=== PATIENT | female | born 1995 | race African-American/Black ===

== ENCOUNTER 2016-05-26 10:12 | Emergency (ER) | payer BC, OTHER ==
[~2016-05-26] VITALS: Ht 149.8 cm; Wt 50.8 kg
--- NOTE | ~2016-05-26 | EKG ---
[place], [place] ELECTROCARDIOGRAM REPORT NAME: ANNAMARIE MOREIRA UNIT #: [id number] ROOM: DOCTOR: GILBERTO YANES MD BIRTHDATE: [birth year] DOS: 05/26/2016 TIME: 19:33:02. RATE AND RHYTHM: Normal sinus rhythm at 78 beats per minute. VA interval 141 milliseconds. QRS duration 59 milliseconds, corrected QT interval 440 milliseconds, QRS axis 67. IMPRESSION: Normal EKG. GILBERTO YANES MD CM:EKGRPT:ELECTROCARDIOGRAM REPORT 1211 1330 GILBERTO YANES MD
[~2016-05-26 10:12] MED LIST: ABILIFY10 MG PO; AMOXICILLIN500 M2 PO; AUGMENTIN 875875 MG PO; BIRTH CONTROL1 EAC1; CIPROFLOXACIN500 MG PO; DEPAKOTE DR500 MG PO; DOXYCYCLINE HY100 M3 PO; FLAGYL500 MG PO; IRON90 MG PO; LEVAQUIN750 M1 PO; MELATONIN5 M1 SL; MOTRIN400 MG PO; MOTRIN800 MG PO; NKHM; PLAN B ONE-STE1.5 MG PO; RISPERDAL CON12.5 MG IM; RISPERDAL0.25 MG; TYLENOL325 M1 PO; ZOFRAN4 MG PO; ZYPREXA10 M1 PO
[2016-05-26 11:03] LABS: HEMATOCRIT 40.3 % (37.0-47.0); HEMOGLOBIN 12.5 g/dl (12.0-16.0); MEAN CELL VOLUME 80.3 fl (81.0-99.0); MEAN CORPUSCULAR HGB 24.9 pg (27.0-31.0); PLATELET COUNT AUTOMATED 350 10*3/uL (130-400); RED BLOOD COUNT 5.02 10*6/uL (4.10-5.10); RED CELL DISTRI WIDTH 13.7 % (0-14.5); WHITE BLOOD COUNT 7.5 10*3/uL (4.8-10.8)
[2016-05-26 11:14] LABS: ATYPICAL LYMPHS 1 % (0-0); BASOPHIL # 0.1 10*3/uL (0-0.1); BASOPHILS 1 % (0-1); BUN 18 mg/dl (7-24); CARBON DIOXIDE 26 mmol/L (21-32); CHLORIDE 108 mmol/L (98-107); EOSINOPHIL # 0.2 10*3/uL (0-0.4); EOSINOPHILS 2 % (1-4); EST GLOM FILT AFRICAN AMERICAN > 60 ml/min; GLUCOSE 92 mg/dL (65-99); LYMPHOCYTE # 2.5 10*3/uL (1.3-4.4); MONOCYTE # 0.2 10*3/uL (0.1-1.0); NEUTROPHIL # 4.6 10*3/uL (2.3-7.9); NEUTROPHILS 61 % (47-73); PLATELET SUFFICIENCY NORMAL (NORMAL); POTASSIUM 3.9 mmol/L (3.5-5.1); SODIUM 141 mmol/L (136-145); TOTAL CELLS COUNTED 100 #CELLS
[2016-05-26 13:55] LABS: BILIRUBIN NEGATIVE (NEGATIVE); BLOOD NEGATIVE (NEGATIVE); CLARITY CLOUDY (CLEAR); COLOR YELLOW (YELLOW); GLUCOSE NEGATIVE (NEGATIVE); KETONE 1+ (NEGATIVE); LEUKO ESTERASE NEGATIVE (NEGATIVE); NITRITE NEGATIVE (NEGATIVE); PH 5.5 (5.0-9.0); PROTEIN NEGATIVE (NEGATIVE); SPECIFIC GRAVITY >= 1.030 (1.005-1.030); UROBILINOGEN 0.2 E.U./dl (0.2-1.0)
[2016-05-26 14:11] LABS: URINE AMPHETAMINES < 1000 (1000ng/ml); URINE BARBITURATES < 200 (200ng/ml); URINE COCAINE < 300 (300ng/ml)
[2016-05-26 14:13] LABS: BACTERIA 3+; EPITHELIAL CELLS 25-30; URINE REFLEX COMMENT YES (NO); WBC 0-2 wbc/hpf (0-5)
== END 2016-05-27 09:24 | disposition short-term general hospital (02) ==
LOC: ED 10:12
PROVIDERS: Emergency Medicine
DX: F23 Brief psychotic disorder (principal); F17.200 Nicotine dependence, unspecified, uncomplicated; F31.9 Bipolar disorder, unspecified; Z88.6 Allergy status to analgesic agent; Z88.8 Allergy status to other drugs, medicaments and biological substances

== ENCOUNTER 2016-11-22 20:55 | Emergency (ER) | payer SELFPAY ==
[~2016-11-22] VITALS: Ht 147.3 cm; Wt 55.8 kg
[2016-11-22] MEDS ORDERED: CEPHALEXIN500 M1 PO (22:06)
== END 2016-11-22 22:10 | disposition home or self-care (01) ==
LOC: ED 20:55
DX: S91.332A Puncture wound without foreign body, left foot, initial encounter (principal); F12.10 Cannabis abuse, uncomplicated; F17.200 Nicotine dependence, unspecified, uncomplicated; Z88.6 Allergy status to analgesic agent; Z88.8 Allergy status to other drugs, medicaments and biological substances; W45.0XXA Nail entering through skin, initial encounter; Y93.89 Activity, other specified; Y92.009 Unspecified place in unspecified non-institutional (private) residence as the place of occurrence of the external cause; Y99.9 Unspecified external cause status

== ENCOUNTER 2016-11-28 21:25 | Emergency (ER) | payer SELFPAY ==
[~2016-11-28] VITALS: Ht 147.3 cm; Wt 55.8 kg
[~2016-11-28 21:25] MED LIST changes: +CEPHALEXIN500 M1 PO
[2016-11-28 22:07] LABS: BASO % 0.4 % (0.0-1.0); EOS # 0.2 10*3/uL (0.0-0.4); EOS % 2.6 % (1.0-4.0); HEMATOCRIT 38.1 % (37.0-47.0); HEMOGLOBIN 12.6 g/dl (12.0-16.0); LYMPH # 1.8 10*3/uL (1.3-4.4); LYMPH % 23.9 % (27.0-41.0); MEAN CELL VOLUME 78.7 fl (81.0-99.0); MEAN CORPUSCULAR HGB CONC 33.1 g/dl (33.0-37.0); MEAN PLATELET VOLUME 10.1 fl (9.6-12.3); MONO # 0.5 10*3/uL (0.1-1.0); MONO % 6.7 % (3.0-9.0); NEUT # 4.9 10*3/uL (2.3-7.9); NEUT % 66.1 % (47.0-73.0); PLATELET COUNT AUTOMATED 260 10*3/uL (130-400); RED BLOOD COUNT 4.84 10*6/uL (4.10-5.10); RED CELL DISTRI WIDTH 13.7 % (0-14.5); WHITE BLOOD COUNT 7.4 10*3/uL (4.8-10.8)
[2016-11-28 22:24] LABS: ALBUMIN 4.1 gm/dl (3.1-4.5); ALKALINE PHOSPHATASE 57 U/L (45-117); BILIRUBIN, TOTAL 0.6 mg/dl (0.2-1.0); BUN 10 mg/dl (7-24); CARBON DIOXIDE 25 mmol/L (21-32); CHLORIDE 103 mmol/L (98-107); EST GLOM FILT AFRICAN AMERICAN > 60 ml/min; GLUCOSE 84 mg/dL (65-99); POTASSIUM 3.7 mmol/L (3.5-5.1); SGOT/AST 21 IU/L (3-35); SGPT/ALT 24 U/L (12-78); SODIUM 140 mmol/L (136-145); TOTAL PROTEIN 7.9 gm/dL (6.4-8.2)
[2016-11-28 22:25] LABS: C-REACTIVE PROTEIN < 0.29 MG/DL (0-0.3)
[2016-11-28 22:26] LABS: B-hCG (QUALITATIVE) NEGATIVE (NEGATIVE)
[2016-11-28 22:45] LABS: BILIRUBIN NEGATIVE (NEGATIVE); BLOOD 1+ (NEGATIVE); CLARITY SL CLOUDY (CLEAR); COLOR YELLOW (YELLOW); GLUCOSE NEGATIVE (NEGATIVE); KETONE NEGATIVE (NEGATIVE); LEUKO ESTERASE 3+ (NEGATIVE); NITRITE NEGATIVE (NEGATIVE); PROTEIN NEGATIVE (NEGATIVE); UROBILINOGEN 0.2 E.U./dl (0.2-1.0)
[2016-11-28 23:01] LABS: BACTERIA 1+; EPITHELIAL CELLS 31-40; URINE REFLEX COMMENT YES (NO)
[2016-11-28 23:02] LABS: RBC 31-40 rbc/hpf (0-2)
[2016-11-28] MEDS ORDERED: BACTRIM DS 8001 TA1 PO (23:26)
[2016-11-28] MEDS ORDERED: PYRIDIUM200 M1 PO (23:26)
== END 2016-11-28 23:34 | disposition home or self-care (01) ==
LOC: ED 21:25
PROVIDERS: Physician Assistant
DX: N30.00 Acute cystitis without hematuria (principal); F12.10 Cannabis abuse, uncomplicated; F17.200 Nicotine dependence, unspecified, uncomplicated; Z88.6 Allergy status to analgesic agent; Z88.8 Allergy status to other drugs, medicaments and biological substances; Z79.899 Other long term (current) drug therapy

== ENCOUNTER 2016-12-24 18:15 | Emergency (ER) | payer SELFPAY ==
[~2016-12-24] VITALS: Wt 54.4 kg
[~2016-12-24 18:15] MED LIST changes: +BACTRIM DS 8001 TA1 PO; +PYRIDIUM200 M1 PO
== END 2016-12-24 21:15 | disposition home or self-care (01) ==
LOC: ED 18:15
DX: Z00.00 Encounter for general adult medical examination without abnormal findings (principal); Z32.02 Encounter for pregnancy test, result negative; F17.200 Nicotine dependence, unspecified, uncomplicated; Z88.6 Allergy status to analgesic agent; Z88.8 Allergy status to other drugs, medicaments and biological substances

== ENCOUNTER 2017-01-11 04:05 | Emergency (ER) | payer BC, OTHER ==
[~2017-01-11] VITALS: Ht 147.3 cm; Wt 55.3 kg
== END 2017-01-11 05:29 | disposition home or self-care (01) ==
LOC: ED 04:05
DX: S61.307A Unspecified open wound of left little finger with damage to nail, initial encounter (principal); Z88.6 Allergy status to analgesic agent; Z88.4 Allergy status to anesthetic agent; Z88.8 Allergy status to other drugs, medicaments and biological substances; F17.200 Nicotine dependence, unspecified, uncomplicated; Y04.0XXA Assault by unarmed brawl or fight, initial encounter; Y93.89 Activity, other specified; Y92.89 Other specified places as the place of occurrence of the external cause; Y99.8 Other external cause status

== ENCOUNTER 2017-04-18 13:18 | Emergency (ER) | payer BC, OTHER ==
[~2017-04-18] VITALS: Ht 144.7 cm; Wt 59.0 kg
[2017-04-18 13:51] LABS: BILIRUBIN NEGATIVE (NEGATIVE); BLOOD TRACE-INTACT (NEGATIVE); CLARITY SL CLOUDY (CLEAR); COLOR YELLOW (YELLOW); GLUCOSE NEGATIVE (NEGATIVE); KETONE NEGATIVE (NEGATIVE); LEUKO ESTERASE NEGATIVE (NEGATIVE); NITRITE NEGATIVE (NEGATIVE); PH 5.5 (5.0-9.0); SPECIFIC GRAVITY 1.025 (1.005-1.030); UROBILINOGEN 0.2 E.U./dl (0.2-1.0)
[2017-04-18 13:59] LABS: BASO % 0.4 % (0.0-1.0); EOS # 0.3 10*3/uL (0.0-0.4); HEMATOCRIT 38.4 % (37.0-47.0); HEMOGLOBIN 12.7 g/dl (12.0-16.0); LYMPH # 0.7 10*3/uL (1.3-4.4); LYMPH % 7.2 % (27.0-41.0); MEAN CELL VOLUME 78.4 fl (81.0-99.0); MEAN CORPUSCULAR HGB 25.9 pg (27.0-31.0); MEAN CORPUSCULAR HGB CONC 33.1 g/dl (33.0-37.0); MEAN PLATELET VOLUME 9.3 fl (9.6-12.3); MONO # 0.6 10*3/uL (0.1-1.0); MONO % 5.6 % (3.0-9.0); NEUT # 8.5 10*3/uL (2.3-7.9); NEUT % 83.4 % (47.0-73.0); PLATELET COUNT AUTOMATED 244 10*3/uL (130-400); RED CELL DISTRI WIDTH 13.9 % (0-14.5); WHITE BLOOD COUNT 10.2 10*3/uL (4.8-10.8)
[2017-04-18 14:02] LABS: BACTERIA 1+; RBC 0-2 rbc/hpf (0-2); WBC 0-2 wbc/hpf (0-5)
[2017-04-18 14:04] LABS: URINE AMPHETAMINES < 1000 (1000ng/ml); URINE BARBITURATES < 200 (200ng/ml); URINE BENZODIAZEPINES < 200 (200ng/ml); URINE CANNABINOIDS (THC) > 50 (50ng/ml); URINE COCAINE > 300 (300ng/ml); URINE METHADONE < 300 (300ng/ml); URINE OPIATES < 300 (300ng/ml)
[2017-04-18 14:05] LABS: URINE PHENCYCLIDINE < 25 (25ng/ml)
[2017-04-18 14:10] LABS: ALKALINE PHOSPHATASE 73 U/L (45-117); BUN 10 mg/dl (7-24); CHLORIDE 102 mmol/L (98-107); CREATININE 0.98 mg/dL (0.55-1.02); ETHYL ALCOHOL < 3.0 mg/dl (<3); POTASSIUM 3.8 mmol/L (3.5-5.1); SGOT/AST 20 IU/L (3-35); SGPT/ALT 25 U/L (12-78); SODIUM 140 mmol/L (136-145)
== END 2017-04-18 15:05 | disposition home or self-care (01) ==
LOC: ED 13:18
PROVIDERS: Emergency Medicine
DX: O26.891 Other specified pregnancy related conditions, first trimester (principal); R51 Headache; O99.341 Other mental disorders complicating pregnancy, first trimester; F22 Delusional disorders; O99.321 Drug use complicating pregnancy, first trimester; F19.20 Other psychoactive substance dependence, uncomplicated; F12.10 Cannabis abuse, uncomplicated; O99.331 Smoking (tobacco) complicating pregnancy, first trimester; F17.200 Nicotine dependence, unspecified, uncomplicated; Z3A.01 Less than 8 weeks gestation of pregnancy; Z88.6 Allergy status to analgesic agent; Z88.8 Allergy status to other drugs, medicaments and biological substances

== ENCOUNTER 2017-04-20 16:50 | Emergency (ER) | payer BC, OTHER ==
[~2017-04-20] VITALS: Ht 144.7 cm; Wt 59.0 kg
[2017-04-20 17:49] LABS: BILIRUBIN NEGATIVE (NEGATIVE); BLOOD NEGATIVE (NEGATIVE); CLARITY SL CLOUDY (CLEAR); COLOR YELLOW (YELLOW); GLUCOSE NEGATIVE (NEGATIVE); KETONE NEGATIVE (NEGATIVE); LEUKO ESTERASE NEGATIVE (NEGATIVE); NITRITE NEGATIVE (NEGATIVE); UROBILINOGEN 0.2 E.U./dl (0.2-1.0)
[2017-04-20 17:56] LABS: BACTERIA 1+; EPITHELIAL CELLS 31-40
[2017-04-20 17:57] LABS: WBC 0-2 wbc/hpf (0-5)
[2017-04-20] MEDS ORDERED: REGLAN5 MG PO (18:39)
== END 2017-04-20 18:46 | disposition home or self-care (01) ==
LOC: ED 16:50
PROVIDERS: Nurse Practitioner Family
DX: O26.891 Other specified pregnancy related conditions, first trimester (principal); O21.9 Vomiting of pregnancy, unspecified; O99.331 Smoking (tobacco) complicating pregnancy, first trimester; R11.0 Nausea; F17.200 Nicotine dependence, unspecified, uncomplicated; Z88.6 Allergy status to analgesic agent; Z88.8 Allergy status to other drugs, medicaments and biological substances

== ENCOUNTER 2017-04-22 06:14 | Emergency (ER) | payer BC, OTHER ==
[~2017-04-22] VITALS: Ht 157.4 cm; Wt 59.0 kg
[~2017-04-22 06:14] MED LIST changes: +REGLAN5 MG PO
[2017-04-22 06:44] LABS: BILIRUBIN NEGATIVE (NEGATIVE); BLOOD NEGATIVE (NEGATIVE); CLARITY CLEAR (CLEAR); COLOR YELLOW (YELLOW); GLUCOSE NEGATIVE (NEGATIVE); KETONE NEGATIVE (NEGATIVE); LEUKO ESTERASE NEGATIVE (NEGATIVE); NITRITE NEGATIVE (NEGATIVE); SPECIFIC GRAVITY <= 1.005 (1.005-1.030); UROBILINOGEN 0.2 E.U./dl (0.2-1.0)
[2017-04-22 06:46] LABS: BASO % 0.4 % (0.0-1.0); EOS # 0.2 10*3/uL (0.0-0.4); EOS % 2.6 % (1.0-4.0); HEMATOCRIT 37.4 % (37.0-47.0); LYMPH # 1.4 10*3/uL (1.3-4.4); LYMPH % 17.6 % (27.0-41.0); MEAN CELL VOLUME 77.3 fl (81.0-99.0); MEAN CORPUSCULAR HGB 24.8 pg (27.0-31.0); MEAN CORPUSCULAR HGB CONC 32.1 g/dl (33.0-37.0); MEAN PLATELET VOLUME 9.5 fl (9.6-12.3); MONO # 0.8 10*3/uL (0.1-1.0); MONO % 9.7 % (3.0-9.0); NEUT # 5.4 10*3/uL (2.3-7.9); NEUT % 69.2 % (47.0-73.0); PLATELET COUNT AUTOMATED 271 10*3/uL (130-400); RED BLOOD COUNT 4.84 10*6/uL (4.10-5.10); RED CELL DISTRI WIDTH 13.8 % (0-14.5); WHITE BLOOD COUNT 7.7 10*3/uL (4.8-10.8)
[2017-04-22 07:01] LABS: WBC 0-2 wbc/hpf (0-5)
[2017-04-22 07:03] LABS: ALBUMIN 4.1 gm/dl (3.1-4.5); ALKALINE PHOSPHATASE 53 U/L (45-117); BUN 10 mg/dl (7-24); CHLORIDE 105 mmol/L (98-107); CREATININE 0.79 mg/dL (0.55-1.02); POTASSIUM 3.6 mmol/L (3.5-5.1); SGOT/AST 22 IU/L (3-35); SGPT/ALT 29 U/L (12-78); SODIUM 137 mmol/L (136-145); TOTAL PROTEIN 7.7 gm/dL (6.4-8.2)
[2017-04-22 07:47] LABS: URINE AMPHETAMINES < 1000 (1000ng/ml); URINE BARBITURATES < 200 (200ng/ml); URINE BENZODIAZEPINES < 200 (200ng/ml); URINE CANNABINOIDS (THC) < 50 (50ng/ml); URINE COCAINE < 300 (300ng/ml); URINE METHADONE < 300 (300ng/ml); URINE OPIATES < 300 (300ng/ml)
[2017-04-22 07:49] LABS: URINE PHENCYCLIDINE < 25 (25ng/ml)
[2017-04-23 08:11] LABS: HIV 1+2 AB + HIV1 P24 AG Non Reactive (Non Reactive)
[2017-04-23 10:09] LABS: HEPATITIS B SURFACE AG Negative (Negative); HEPATITIS C AB 0.2 (0.0-0.9)
== END 2017-04-22 16:20 | disposition home health service (06) ==
LOC: ED 06:14
PROVIDERS: Internal Medicine; Student in an Organized Health Care Education/Training Program
DX: O99.341 Other mental disorders complicating pregnancy, first trimester (principal); F23 Brief psychotic disorder; F41.9 Anxiety disorder, unspecified; Z3A.01 Less than 8 weeks gestation of pregnancy; Z88.6 Allergy status to analgesic agent; Z88.8 Allergy status to other drugs, medicaments and biological substances

== ENCOUNTER 2017-06-01 16:59 | Emergency (ER) | payer OTHER ==
[~2017-06-01] VITALS: Ht 149.8 cm; Wt 64.4 kg
[2017-06-01] MEDS ORDERED: HALDOL5 MG PO (17:21)
[2017-06-01 17:44] LABS: BASO % 0.3 % (0.0-1.0); EOS # 0.2 10*3/uL (0.0-0.4); EOS % 2.3 % (1.0-4.0); HEMATOCRIT 35.2 % (37.0-47.0); HEMOGLOBIN 11.5 g/dl (12.0-16.0); LYMPH # 1.4 10*3/uL (1.3-4.4); LYMPH % 16.4 % (27.0-41.0); MEAN CELL VOLUME 76.9 fl (81.0-99.0); MEAN CORPUSCULAR HGB 25.1 pg (27.0-31.0); MEAN CORPUSCULAR HGB CONC 32.7 g/dl (33.0-37.0); MEAN PLATELET VOLUME 8.8 fl (9.6-12.3); MONO % 10.9 % (3.0-9.0); NEUT % 69.2 % (47.0-73.0); PLATELET COUNT AUTOMATED 237 10*3/uL (130-400); RED BLOOD COUNT 4.58 10*6/uL (4.10-5.10); RED CELL DISTRI WIDTH 14.2 % (0-14.5); WHITE BLOOD COUNT 8.7 10*3/uL (4.8-10.8)
[2017-06-01 18:00] LABS: ALBUMIN 3.1 gm/dl (3.1-4.5); ALKALINE PHOSPHATASE 45 U/L (45-117); BUN 11 mg/dl (7-24); CHLORIDE 103 mmol/L (98-107); CREATININE 0.77 mg/dL (0.55-1.02); LIPASE 93 U/L (73-393); POTASSIUM 4.1 mmol/L (3.5-5.1); SGOT/AST 15 IU/L (3-35); SGPT/ALT 17 U/L (12-78); SODIUM 138 mmol/L (136-145); TOTAL PROTEIN 7.2 gm/dL (6.4-8.2)
[2017-06-01 18:02] LABS: TROPONIN I < 0.015 ng/ml (<0.045)
[2017-06-01 18:50] LABS: BILIRUBIN NEGATIVE (NEGATIVE); BLOOD NEGATIVE (NEGATIVE); CLARITY CLEAR (CLEAR); COLOR YELLOW (YELLOW); GLUCOSE NEGATIVE (NEGATIVE); KETONE NEGATIVE (NEGATIVE); LEUKO ESTERASE NEGATIVE (NEGATIVE); NITRITE NEGATIVE (NEGATIVE); UROBILINOGEN 0.2 E.U./dl (0.2-1.0)
[2017-06-01 18:57] LABS: BACTERIA 4+
[2017-06-01 18:58] LABS: EPITHELIAL CELLS 21-30; RBC 0-2 rbc/hpf (0-2); WBC 0-2 wbc/hpf (0-5)
== END 2017-06-01 18:59 | disposition home or self-care (01) ==
LOC: ED 16:59
PROVIDERS: Nurse Practitioner Family
DX: O26.891 Other specified pregnancy related conditions, first trimester (principal); R07.9 Chest pain, unspecified; O99.321 Drug use complicating pregnancy, first trimester; F12.10 Cannabis abuse, uncomplicated; O99.331 Smoking (tobacco) complicating pregnancy, first trimester; F17.200 Nicotine dependence, unspecified, uncomplicated; Z79.899 Other long term (current) drug therapy; Z88.6 Allergy status to analgesic agent; Z88.8 Allergy status to other drugs, medicaments and biological substances; Z88.5 Allergy status to narcotic agent; Z3A.12 12 weeks gestation of pregnancy

== ENCOUNTER → 2017-07-27 | Outpatient (CLI) | payer BC, OTHER ==
[~2017-07-27] MED LIST changes: +HALDOL5 MG PO
== END | disposition home or self-care (01) ==
LOC: US 13:00
DX: Z34.81 Encounter for supervision of other normal pregnancy, first trimester (principal); Z3A.18 18 weeks gestation of pregnancy

== ENCOUNTER 2017-10-07 21:52 | Emergency (ER) | payer BC, OTHER ==
[~2017-10-07] VITALS: Ht 147.3 cm; Wt 743.0 kg
[2017-10-07 22:41] LABS: BASO % 0.4 % (0.0-1.0); EOS # 0.2 10*3/uL (0.0-0.4); EOS % 2.5 % (1.0-4.0); HEMATOCRIT 34.1 % (37.0-47.0); HEMOGLOBIN 10.9 g/dl (12.0-16.0); LYMPH # 1.5 10*3/uL (1.3-4.4); LYMPH % 20.9 % (27.0-41.0); MEAN CELL VOLUME 80.2 fl (81.0-99.0); MEAN CORPUSCULAR HGB 25.6 pg (27.0-31.0); MEAN PLATELET VOLUME 9.4 fl (9.6-12.3); MONO # 0.9 10*3/uL (0.1-1.0); NEUT # 4.5 10*3/uL (2.3-7.9); PLATELET COUNT AUTOMATED 202 10*3/uL (130-400); RED BLOOD COUNT 4.25 10*6/uL (4.10-5.10); WHITE BLOOD COUNT 7.2 10*3/uL (4.8-10.8)
[2017-10-07 22:53] LABS: BILIRUBIN NEGATIVE (NEGATIVE); BLOOD NEGATIVE (NEGATIVE); CLARITY CLEAR (CLEAR); COLOR YELLOW (YELLOW); GLUCOSE NEGATIVE (NEGATIVE); KETONE NEGATIVE (NEGATIVE); LEUKO ESTERASE NEGATIVE (NEGATIVE); NITRITE NEGATIVE (NEGATIVE); UROBILINOGEN 0.2 E.U./dl (0.2-1.0)
[2017-10-07 23:00] LABS: ALKALINE PHOSPHATASE 80 U/L (45-117); BUN 7 mg/dl (7-24); CHLORIDE 106 mmol/L (98-107); CREATININE 0.57 mg/dL (0.55-1.02); POTASSIUM 3.5 mmol/L (3.5-5.1); SGOT/AST 22 IU/L (3-35); SGPT/ALT 21 U/L (12-78); SODIUM 139 mmol/L (136-145); TOTAL PROTEIN 6.4 gm/dL (6.4-8.2)
[2017-10-07 23:07] LABS: BACTERIA 1+; EPITHELIAL CELLS 25-30
[2017-10-07] MEDS ORDERED: MACROBID100 M1 PO (23:15)
== END 2017-10-07 23:35 | disposition home or self-care (01) ==
LOC: ED 21:52
PROVIDERS: Student in an Organized Health Care Education/Training Program
DX: O23.43 Unspecified infection of urinary tract in pregnancy, third trimester (principal); R82.71 Bacteriuria; F31.9 Bipolar disorder, unspecified; Z79.82 Long term (current) use of aspirin; Z79.899 Other long term (current) drug therapy; Z3A.29 29 weeks gestation of pregnancy

== ENCOUNTER 2017-10-20 22:59 | Emergency (ER) | payer BC, OTHER ==
[~2017-10-20] VITALS: Ht 147.3 cm; Wt 79.4 kg
[~2017-10-20 22:59] MED LIST changes: +MACROBID100 M1 PO
== END 2017-10-21 00:04 | disposition left against medical advice (07) ==
LOC: ED 22:59
DX: Z34.83 Encounter for supervision of other normal pregnancy, third trimester (principal); Z3A.28 28 weeks gestation of pregnancy; Z88.6 Allergy status to analgesic agent; Z88.8 Allergy status to other drugs, medicaments and biological substances

== ENCOUNTER → 2020-09-28 | Outpatient (CLI) | payer OTHER ==
[~2020-09-28] MED LIST changes: +ALA-CORT28.4 GM T; +PRENATAL 19 TA1 EAC1 PO
== END | disposition home or self-care (01) ==
LOC: US 13:00
PROVIDERS: ATTEND Obstetrics & Gynecology
DX: O32.1XX0 Maternal care for breech presentation, not applicable or unspecified (principal); O46.90 Antepartum hemorrhage, unspecified, unspecified trimester; Z3A.21 21 weeks gestation of pregnancy

== ENCOUNTER → 2020-10-17 | Outpatient (CLI) | payer OTHER | END | disposition home or self-care (01) | LOC: US 10:30 | PROVIDERS: ATTEND Nurse Practitioner Women's Health | DX: Z34.82 Encounter for supervision of other normal pregnancy, second trimester (principal); Z3A.25 25 weeks gestation of pregnancy ==

== ENCOUNTER → 2020-11-21 | Outpatient (CLI) | payer OTHER | END | disposition home or self-care (01) | LOC: LAB 09:14 | PROVIDERS: ATTEND Nurse Practitioner Women's Health | DX: O99.810 Abnormal glucose complicating pregnancy (principal); Z3A.29 29 weeks gestation of pregnancy ==

== ENCOUNTER → 2020-11-27 | Outpatient (CLI) | payer OTHER | END | disposition home or self-care (01) | LOC: US 14:00 | PROVIDERS: ATTEND Nurse Practitioner Women's Health | DX: Z34.83 Encounter for supervision of other normal pregnancy, third trimester (principal); Z3A.31 31 weeks gestation of pregnancy ==

== ENCOUNTER 2022-04-05 09:22 | Emergency (ER) | payer OTHER ==
[~2022-04-05] VITALS: Ht 147.3 cm; Wt 63.5 kg
[2022-04-05] MEDS ORDERED: AMOXICILLIN500 M3 PO (09:44)
[2022-04-05] MEDS ORDERED: TYLENOL325 M1 PO (09:44)
[2022-04-05] MEDS ORDERED: NAPROXEN250 MG PO (09:44)
== END 2022-04-05 10:02 | disposition home or self-care (01) ==
LOC: ED 09:22
DX: K02.9 Dental caries, unspecified (principal)

== ENCOUNTER 2022-04-19 12:03 | Emergency (ER) | payer OTHER ==
[~2022-04-19] VITALS: Ht 147.3 cm; Wt 63.5 kg
[~2022-04-19 12:03] MED LIST changes: +AMOXICILLIN500 M3 PO; +NAPROXEN250 MG PO
[2022-04-19] MEDS ORDERED: CLEOCIN HCL300 MG PO (12:25)
== END 2022-04-19 12:19 | disposition home or self-care (01) ==
LOC: ED 12:03
DX: K08.89 Other specified disorders of teeth and supporting structures (principal)

== ENCOUNTER 2022-10-03 08:46 | Emergency (ER) | payer OTHER ==
[~2022-10-03] VITALS: Ht 147.3 cm; Wt 63.5 kg
[~2022-10-03 08:46] MED LIST changes: +CLEOCIN HCL300 MG PO
[2022-10-03] MEDS ORDERED: TRAMADOL HCL50 MG PO ×2 (09:20→09:22)
[2022-10-03] MEDS ORDERED: AMOX-CLAV 875-1 EACH PO (09:20)
== END 2022-10-03 09:38 | disposition home or self-care (01) ==
LOC: ED 08:46
DX: K04.7 Periapical abscess without sinus (principal); F41.9 Anxiety disorder, unspecified; F32.A Depression, unspecified; F17.200 Nicotine dependence, unspecified, uncomplicated; F12.90 Cannabis use, unspecified, uncomplicated

== ENCOUNTER 2023-05-05 09:47 | Emergency (ER) | payer OTHER ==
[~2023-05-05] VITALS: Ht 147.3 cm; Wt 68.0 kg
[~2023-05-05 09:47] MED LIST changes: +AMOX-CLAV 875-1 EACH PO; +TRAMADOL HCL50 MG PO
[2023-05-05 12:25] LABS: BILIRUBIN Negative (Negative); BLOOD 3+ (Negative); CLARITY Cloudy (Clear); COLOR Red (Yellow); GLUCOSE Negative (Negative); KETONE Negative (Negative); LEUKO ESTERASE 1+ (Negative); NITRITE Negative (Negative)
[2023-05-05 12:38] LABS: BASO % 0.5 % (0.0-1.0); EOS # 0.2 10*3/uL (0.0-0.4); EOS % 2.5 % (1.0-4.0); HEMATOCRIT 39.3 % (37.0-47.0); LYMPH # 1.3 10*3/uL (1.3-4.4); LYMPH % 22.4 % (27.0-41.0); MEAN CELL VOLUME 80.2 fl (81.0-99.0); MEAN CORPUSCULAR HGB 25.9 pg (27.0-31.0); MEAN CORPUSCULAR HGB CONC 32.3 g/dl (33.0-37.0); MEAN PLATELET VOLUME 9.8 fl (9.6-12.3); MONO # 0.4 10*3/uL (0.1-1.0); MONO % 6.9 % (3.0-9.0); NEUT % 67.4 % (47.0-73.0); PLATELET COUNT AUTOMATED 269 10*3/uL (130-400); RED CELL DISTRI WIDTH 13.9 % (0-14.5); WHITE BLOOD COUNT 5.9 10*3/uL (4.8-10.8)
[2023-05-05 12:44] LABS: PH 8.5 (4.5-8.0)
[2023-05-05 12:47] LABS: BACTERIA 4+; RBC TNTC rbc/hpf (0-2); WBC 21-30 wbc/hpf (0-5)
[2023-05-05 13:01] LABS: ALKALINE PHOSPHATASE 66 U/L (46-116); BUN 10 mg/dl (9-23); CHLORIDE 105 mmol/L (98-107); POTASSIUM 3.8 mmol/L (3.4-5.1); SGPT/ALT 14 U/L (5-49); TOTAL PROTEIN 7.6 gm/dL (6.0-8.0)
[2023-05-05 13:02] LABS: BETA-HCG, QUANT < 3.0 mIU/mL (3-10)
[2023-05-05] MEDS ORDERED: OMNICEF300 MG PO (13:19)
== END 2023-05-05 13:36 | disposition home or self-care (01) ==
LOC: ED 09:47
PROVIDERS: Family Medicine; Nurse Practitioner Family
DX: N39.0 Urinary tract infection, site not specified (principal); N93.9 Abnormal uterine and vaginal bleeding, unspecified; Z32.02 Encounter for pregnancy test, result negative; F41.9 Anxiety disorder, unspecified; F31.9 Bipolar disorder, unspecified; R10.2 Pelvic and perineal pain; F12.90 Cannabis use, unspecified, uncomplicated; F17.200 Nicotine dependence, unspecified, uncomplicated

== ENCOUNTER 2023-08-12 17:26 | Emergency (ER) | payer OTHER ==
[~2023-08-12] VITALS: Wt 63.5 kg
[~2023-08-12 17:26] MED LIST changes: +OMNICEF300 MG PO
== END 2023-08-12 19:27 | disposition home or self-care (01) ==
LOC: ED 17:26
DX: Z32.02 Encounter for pregnancy test, result negative (principal); F31.9 Bipolar disorder, unspecified; F17.200 Nicotine dependence, unspecified, uncomplicated; Z79.2 Long term (current) use of antibiotics; Z79.899 Other long term (current) drug therapy

== ENCOUNTER 2023-10-09 09:23 | Emergency (ER) | payer OTHER ==
[~2023-10-09] VITALS: Ht 147.3 cm; Wt 65.8 kg
[2023-10-09] MEDS ORDERED: Acetaminophen/Oxycodone 5 MG/325 MG TABLET PO ONE (09:45)
[2023-10-09] MEDS ORDERED: AMOX-CLAV 875-1 EACH PO (09:45)
[2023-10-09] MEDS ORDERED: MELOXICAM15 MG PO (09:45)
[2023-10-09] MEDS ORDERED: Amoxicillin/Clavulanate Pota 875 MG TAB PO ONE (09:45)
[2023-10-09] MEDS ORDERED: NICODERM CQ1 EAC2 TD (09:53)
== END 2023-10-09 09:50 | disposition home or self-care (01) ==
LOC: ED 09:23
DX: K04.7 Periapical abscess without sinus (principal); K02.9 Dental caries, unspecified; F31.9 Bipolar disorder, unspecified; F41.9 Anxiety disorder, unspecified; F12.90 Cannabis use, unspecified, uncomplicated; F17.200 Nicotine dependence, unspecified, uncomplicated

== ENCOUNTER 2024-01-02 22:19 | Emergency (ER) | payer OTHER ==
[~2024-01-02] VITALS: Ht 147.3 cm
[~2024-01-02 22:19] MED LIST changes: +MELOXICAM15 MG PO; +NICODERM CQ1 EAC2 TD
[2024-01-02 22:55] LABS: BILIRUBIN Negative (Negative); BLOOD Negative (Negative); CLARITY Cloudy (Clear); COLOR Yellow (Yellow); GLUCOSE Negative (Negative); KETONE Trace (Negative); LEUKO ESTERASE Trace (Negative); NITRITE Negative (Negative); PH 6.5 (4.5-8.0); SPECIFIC GRAVITY 1.025 (1.001-1.030)
[2024-01-02 23:03] LABS: BACTERIA 1+; EPITHELIAL CELLS 16-20; MUCOUS 1+; RBC 0-2 rbc/hpf (0-2)
== END 2024-01-02 23:31 | disposition home or self-care (01) ==
LOC: ED 22:19
PROVIDERS: Nurse Practitioner Family
DX: O26.891 Other specified pregnancy related conditions, first trimester (principal); R82.71 Bacteriuria; F31.9 Bipolar disorder, unspecified; F41.9 Anxiety disorder, unspecified; D64.9 Anemia, unspecified; F12.90 Cannabis use, unspecified, uncomplicated; F17.200 Nicotine dependence, unspecified, uncomplicated; Z3A.08 8 weeks gestation of pregnancy